=== PATIENT | female | born 1980 | race African-American/Black ===

== ENCOUNTER → 2017-08-14 | Outpatient (CLI) | payer OTHER | LOC: RAD 10:47 | DX: Z12.31 Encounter for screening mammogram for malignant neoplasm of breast (principal); N63.10 Unspecified lump in the right breast, unspecified quadrant; E28.2 Polycystic ovarian syndrome ==

== ENCOUNTER → 2018-09-28 | Outpatient (CLI) | payer OTHER | LOC: RAD 10:16 | DX: Z12.31 Encounter for screening mammogram for malignant neoplasm of breast (principal) ==

== ENCOUNTER → 2019-03-31 | Outpatient (CLI) | payer OTHER | LOC: RAD 12:09 | DX: Z11.1 Encounter for screening for respiratory tuberculosis (principal) ==

== ENCOUNTER → 2019-12-21 | Outpatient (CLI) | payer OTHER | LOC: LAB 11:11 | DX: R73.03 Prediabetes (principal); R53.82 Chronic fatigue, unspecified ==

== ENCOUNTER → 2020-06-01 | Outpatient (CLI) | payer OTHER | LOC: LAB 09:02 | PROVIDERS: ATTEND Neuromusculoskeletal Medicine & OMM | DX: Z01.84 Encounter for antibody response examination (principal) ==

== ENCOUNTER → 2021-03-18 | Outpatient (CLI) | payer OTHER ==
[2021-03-18 13:11] LABS: ABSOLUTE NEUTROPHILS 1.6 thou/uL (1.4-8.2); BASOPHILS 1.2 % (0.0-2.0); EOSINOPHILS 2.2 % (0.0-3.0); HEMATOCRIT 42.8 % (37.0-47.0); HEMOGLOBIN 13.8 gm/dL (12.0-15.0); LYMPHOCYTES 51.1 % (24.0-44.0); MCH 28.4 pg (26.0-34.0); MCHC 32.3 g/dL (28.0-37.0); MONOCYTES 7.6 % (1.0-8.0); PLATELET COUNT 361 thou/uL (150-400); POLYS 37.9 % (36.0-66.0); RBC 4.86 mil/uL (4.20-5.00); RDW 13.1 % (10.5-14.5); WBC 4.1 thou/uL (4.0-11.0)
[2021-03-18 13:33] LABS: ALBUMIN 4.2 g/dL (3.4-5.0); ANION GAP 10 mmol/L (7-16); BUN 10 mg/dL (7-18); CALCIUM 8.8 mg/dL (8.5-10.1); CHLORIDE 104 mmol/L (98-107); CHOLESTEROL 179 mg/dL (<200); CO2 26 mmol/L (21-32); CREATININE 0.7 mg/dL (0.6-1.0); GLUCOSE 84 mg/dL (74-106); HDL CHOLESTEROL 51 mg/dL (>40); LDL CHOLESTEROL 116 mg/dL (<100); POTASSIUM 3.9 mmol/L (3.5-5.1); SGOT 14 U/L (15-37); SGPT 20 U/L (30-65); SODIUM 140 mmol/L (136-145); TC:HDL 3.5 Ratio (Not establshd); TOTAL BILIRUBIN 0.2 mg/dL (0.2-1.0); TOTAL PROTEIN 8.7 g/dL (6.4-8.2); TRIGLYCERIDE 63 mg/dL (<150); VLDL 13 mg/dL (<40)
[2021-03-19 02:06] LABS: GLYCOHEMOGLOBIN (HGB A1C) 5.8 % (4.8-5.6)
== END ==
LOC: LAB 12:32
PROVIDERS: ATTEND Neuromusculoskeletal Medicine & OMM
DX: E28.2 Polycystic ovarian syndrome (principal); E78.00 Pure hypercholesterolemia, unspecified

== ENCOUNTER → 2021-06-04 | Outpatient (CLI) | payer OTHER | LOC: RAD 08:52 | PROVIDERS: ATTEND Obstetrics & Gynecology | DX: Z12.31 Encounter for screening mammogram for malignant neoplasm of breast (principal); N64.89 Other specified disorders of breast ==

== ENCOUNTER → 2021-06-07 | Outpatient (CLI) | payer OTHER | END | disposition home or self-care (01) | LOC: BC 08:24 | PROVIDERS: ATTEND Obstetrics & Gynecology | DX: R92.1 Mammographic calcification found on diagnostic imaging of breast (principal) ==

== ENCOUNTER → 2021-06-10 | Outpatient (CLI) | payer OTHER ==
--- NOTE | 2021-06-12 10:07 | PATH ---
[facility] [address] [place] [address] PATHOLOGY RPT PROCEDURE Name: ROSALINE RODRIGUEZ Room #: REG [facility] M..#: [id number] Admission: 06/10/21 Date of : 76 Discharge: Report #: [id number] Path Case #: [id number] [facility] Accession Number: [id number] . 01 Material submitted: . breast - LEFT BREAST CALCIFICATIONS. Modifiers: left . 01 Clinical history: . SUPERIOR LATERAL . 01 Diagnosis: Breast "left breast calcifications (superior lateral), biopsy": - Fibrocystic changes with cyst formation, duct ectasia, usual ductal hyperplasia without atypia and microcalcifications. (See comment) . (SHA:rosa; 06/11/2021) [facility] 06/11/2021 1234 Local . 01 Comment: This case is also reviewed by Dr. Damien Guzman. He agrees with the above diagnosis. (SHA:mml; 06/11/2021) . 01 Electronically signed: . Butch Mccray MD, Pathologist NPI- [id number] . 01 Gross description: . The specimen is received in formalin, labeled "Rosaline Rodriguez, left", however the requisition additionally designates the specimen as "left superior lateral breast calcifications". The specimen consists of multiple fibrofatty cylindrical tissues ranging in length from 1.4 cm to 4.5 cm and ranging in diameter from 0.3 cm to 0.8 cm, 2 of which is received in a white cassette and are now placed in cassette A1. The remainder of the specimen is submitted entirely in A2-A4. The specimen is submitted entirely in 4 cassettes. The cold ischemic time is 9 minutes. The total time in formalin is 9 hours. ([place] [facility]; 06/10/2021) DKA/DKA 06/10/2021 1741 Local . 01 Pathologist provided ICD-10: N60.12, N60.02, N60.42, N62 . 01 CPT . 491998 Specimen Comment: A courtesy copy of this report has been sent to [phone], [phone]- [place] [address] PATHOLOGY RPT PROCEDURE Name: ROSALINE RODRIGUEZ MEME [id number]mission: 06/[facility]/21 Date of : 76 Discharge: Report #: [id number] Path Case #: [id number] Specimen Comment: [id number], Specimen Comment: Report sent to , DR CENTENO, DR COOLEY / DR PAULINO Specimen Comment: A duplicate report has been generated due to demographic updates. Performed at: [address] [facility], [place], [place] [id number] MD Butch Mccray MD Phone: [phone]
== END | disposition home or self-care (01) ==
LOC: BC 11:25
PROVIDERS: ATTEND Nurse Practitioner
DX: R92.1 Mammographic calcification found on diagnostic imaging of breast (principal); N60.12 Diffuse cystic mastopathy of left breast; N60.02 Solitary cyst of left breast; N60.42 Mammary duct ectasia of left breast; N62 Hypertrophy of breast